=== PATIENT | male | born 1995 | race African-American/Black ===

== ENCOUNTER 2016-10-15 09:21 | Emergency (ER) | payer OTHER ==
[~2016-10-15] VITALS: Ht 177.8 cm; Wt 56.7 kg
[2016-10-15 09:34] VITALS: BP 119/83; PULSE 97; RESP 16; TEMP 97.6; O2SAT 96
[2016-10-15 10:23] LABS: BASOPHILS % (AUTO) 0.4 % (0.0-2.0); EOSINOPHILS % (AUTO) 0.3 % (0.0-4.0); HEMATOCRIT 42.8 % (36-54); HEMOGLOBIN 14.1 g/dL (14.0-18.0); LYMPHOCYTES % (AUTO) 13.8 % (20.5-51.5); MEAN CORPUSCULAR HEMOGLOBIN 29 pg (27-31); MEAN CORPUSCULAR HGB CONC 33 % (32-36); MEAN CORPUSCULAR VOLUME 89 fL (79.0-98.0); MONOCYTES # (AUTO) 0.4 K/uL (0.0-1.0); NEUTROPHILS # (AUTO) 5.9 K/uL (1.8-7.7); NEUTROPHILS % (AUTO) 79.5 % (40.0-70.0); PLATELET COUNT (AUTO) 222 K/uL (130-430); RED BLOOD CELL COUNT(AUTO) 4.82 MIL/uL (4.2-6.2); RED CELL DISTRIBUTION WIDTH 10.8 % (9.0-15.0); WHITE BLOOD COUNT (AUTO) 7.4 K/uL (4.8-10.8)
[2016-10-15 10:37] LABS: CALCIUM 9.1 mg/dL (8.4-11.0); CREATININE 0.88 mg/dL (0.55-1.30); POTASSIUM 4.1 mmol/L (3.5-5.1)
[2016-10-15 10:41] LABS: INR 1.1 (0.80-1.20); PROTHROMBIN TIME 12.2 SECS (9.5-12.5)
[2016-10-15 10:42] LABS: ALBUMIN 4.3 g/dL (3.4-4.8); TOTAL BILIRUBIN 0.7 mg/dL (0.0-1.0); TOTAL PROTEIN, SERUM 7.6 g/dL (6.4-8.3)
[2016-10-15 11:42] VITALS: BP 122/73; PULSE 78; RESP 16; TEMP 97.9; O2SAT 97
== END 2016-10-15 11:42 | disposition home or self-care (01) ==
LOC: SED 09:21
DX: L29.0 Pruritus ani (principal); Z88.2 Allergy status to sulfonamides
CPT/HCPCS: 36415; 80053; 85025; 85610-TC; 85730-TC; 99285

== ENCOUNTER 2017-07-09 17:21 | Emergency (ER) | payer OTHER, MEDICAID ==
[~2017-07-09] VITALS: Ht 177.8 cm; Wt 61.2 kg
--- NOTE | 2017-07-09 17:21 | NUR ---
Patient triaged and placed in waiting room. VSS and patient appears in no acute distress at this time. Accompanied by mother, awaiting available bed, and MD notified of need for MSE.
--- NOTE | 2017-07-09 17:30 | NUR ---
Pt was medicated for fever with tylenol 1000mg and motrin 800mg PO, tolerated well
[2017-07-09 17:32] VITALS: BP_SYST 121
[2017-07-09] MEDS ORDERED: ACETAMINOPHEN 500 MG TABLET ONE ×2 (17:45→18:38)
[2017-07-09] MEDS ORDERED: IBUPROFEN 800 MG TABLET ONE (17:46)
--- NOTE | 2017-07-09 18:14 | NUR ---
Pt placed in bed 1, endorsed care to Inder BURGER
--- NOTE | 2017-07-09 18:20 | NUR ---
Patient aao x 4 from home with complaint of flu like symptoms since x 2 days BIB mother. Upon assessment patient presents fever 101, chills, cough and body aches. Flu swap postive for influenza A, negative influenza B. Denies nausea, vomitting, and diarrhea. No other complaints, injuries per patient, none noted.
[2017-07-09] MEDS ORDERED: ACETAMINOPHEN 500 MG TABLET PO ONE (18:30)
--- NOTE | 2017-07-09 19:08 | NUR ---
Report and endorsed care to [facility]. Patient remains resting in bed, no signs of distress at this time.
[2017-07-09] MEDS ORDERED: NACL 0.9% 1,000 ML IV ONE (19:45)
[2017-07-09 20:02] LABS: CALCIUM 9.1 mg/dL (8.4-11.0); CREATININE 0.73 mg/dL (0.55-1.30); POTASSIUM 3.6 mmol/L (3.5-5.1)
[2017-07-09 20:07] LABS: ALBUMIN 4.2 g/dL (3.4-4.8); TOTAL BILIRUBIN 0.8 mg/dL (0.0-1.0)
--- NOTE | 2017-07-09 20:15 | NUR ---
20g LFA PIV; good blood return noted; NS bolus started as ordered; family at bedside; will continue to monitor
[2017-07-09 20:19] LABS: BASOPHILS % (AUTO) 0.3 % (0.0-2.0); EOSINOPHILS % (AUTO) 0.7 % (0.0-4.0); HEMATOCRIT 41.1 % (36-54); HEMOGLOBIN 13.4 g/dL (14.0-18.0); LYMPHOCYTES # (AUTO) 0.4 K/uL (1.0-5.5); LYMPHOCYTES % (AUTO) 8.5 % (20.5-51.5); MEAN CORPUSCULAR HEMOGLOBIN 29 pg (27-31); MEAN CORPUSCULAR HGB CONC 33 % (32-36); MEAN CORPUSCULAR VOLUME 89 fL (79.0-98.0); MONOCYTES # (AUTO) 0.8 K/uL (0.0-1.0); MONOCYTES % (AUTO) 15.4 % (1.7-9.3); NEUTROPHILS # (AUTO) 3.9 K/uL (1.8-7.7); NEUTROPHILS % (AUTO) 75.1 % (40.0-70.0); PLATELET COUNT (AUTO) 204 K/uL (130-430); RED BLOOD CELL COUNT(AUTO) 4.62 MIL/uL (4.2-6.2); RED CELL DISTRIBUTION WIDTH 11.6 % (9.0-15.0); WHITE BLOOD COUNT (AUTO) 5.1 K/uL (4.8-10.8)
[2017-07-09 21:10] VITALS: BP_SYST 112
--- NOTE | 2017-07-09 21:10 | NUR ---
Patient given written and verbal discharge instructions and verbalizes understanding. ER MD discussed with patient the results and treatment provided. Patient in stable condition. ID arm band removed. IV catheter removed intact and dressing applied, no active bleeding. Rx of Tylenol #3, Zithromax, and Albuterol given. Patient educated on pain management and to follow up with PMD within 2 to 3days. Pain Scale 5/10; tolerable and requires no intervention at this time; pt and MD agreeable to discharge home. Opportunity for questions provided and answered.
== END 2017-07-09 21:10 | disposition home or self-care (01) ==
LOC: SED 17:21
DX: J40 Bronchitis, not specified as acute or chronic (principal); J09.X2 Influenza due to identified novel influenza A virus with other respiratory manifestations; F31.9 Bipolar disorder, unspecified; F20.9 Schizophrenia, unspecified
CPT/HCPCS: 36415; 71046; 80053; 85025; 86710; 96360; 99285; J7030